=== PATIENT | male | born 1955 | race Two or more races ===

== ENCOUNTER → 2025-05-07 | Outpatient (CLI) | payer OTHER ==
[~2025-05-07] MED LIST: IOHEXOL-350 75 ML VIAL IV ONE
--- NOTE | 2025-05-07 22:11 | HMCIMG ---
STUDY CT Abdomen and Pelvis with IV contrast HISTORY Gastritis TECHNIQUE Axial contrast-enhanced CT images of the abdomen and pelvis were obtained. COMPARISON None provided. FINDINGS Lung bases Lung bases are clear without focal consolidation or pleural effusion. Liver and biliary system Liver is enlarged, measuring approximately 15.5 cm in craniocaudal dimension, with diffuse low attenuation in keeping with hepatic steatosis. No discrete focal hepatic mass is identified. No intrahepatic or extrahepatic biliary ductal dilatation. Gallbladder is unremarkable on this study without radiopaque gallstones. Pancreas and spleen Pancreas is normal in size and contour without focal mass or ductal dilatation. Spleen is normal in size and attenuation. Adrenal glands Adrenal glands are unremarkable. Kidneys, ureters, and bladder Both kidneys are normal in global size without hydronephrosis or hydroureter. A right lower pole cortical cyst measuring approximately 3 cm demonstrates simple fluid attenuation and no suspicious mural or septal features. No urinary calculi are seen. Urinary bladder is unremarkable. Stomach There is segmental, circumferential gastric wall thickening involving the cardia and proximal body over a craniocaudal length of approximately 12 cm, with maximal mural thickness of up to 1.6 cm. The thickening is relatively symmetric and associated with perigastric fat stranding, without focal mass-like nodularity, luminal shouldering, or obvious serosal breach. No gastric outlet obstruction, pneumatosis, or contained perforation is identified. Bowel The large bowel demonstrates diffuse wall thickening involving the ascending colon, hepatic flexure, transverse colon, splenic flexure, and descending colon, with maximal mural thickness measuring approximately 0.7 to 0.8 cm. The involved segments have a featureless or [id number] appearance, with associated pericolonic fat stranding and prominent mesenteric vasculature, in keeping with an active colitic process. No discrete focal ulcer crater, intramural gas, or yaz mass lesion is seen. Small bowel loops are unremarkable without obstruction. Appendix Appendix is visualized, normal in caliber, and without periappendiceal inflammatory change. Peritoneum and lymph nodes No free intraperitoneal air or fluid. No abdominopelvic lymphadenopathy. Reproductive organs Reproductive structures are unremarkable as visualized. Vasculature No abdominal aortic aneurysm. Major mesenteric and portal venous structures are patent on this contrast-enhanced study. Bones No aggressive osseous lesion or acute fracture. Mild degenerative changes are present in the visualized spine. IMPRESSION * Segmental circumferential thickening of the cardia and proximal gastric body with perigastric fat stranding, most compatible with active gastritis; the symmetric morphology and absence of a discrete mass or shouldering are not typical for overt gastric malignancy, but endoscopic correlation with mucosal evaluation and biopsy is recommended for definitive characterization. * Diffuse colonic wall thickening from the ascending through the descending colon with pericolonic fat stranding, a featureless large bowel contour, and prominent mesenteric vasculature, most in keeping with an active colitis (infectious, inflammatory, or ischemic etiology to be differentiated clinically and endoscopically); no CT evidence of perforation, abscess, or obstruction. * Hepatomegaly with diffuse hepatic steatosis, without focal hepatic lesion. * Simple right lower pole renal cortical cyst measuring approximately 3 cm, without hydronephrosis or urinary calculi. /Temitope
== END | disposition home or self-care (01) ==
LOC: EEVIPCON 09:30 → RAH 09:52
PROVIDERS: ATTEND Physical Medicine & Rehabilitation
DX: K29.70 Gastritis, unspecified, without bleeding (principal); K56.600 Partial intestinal obstruction, unspecified as to cause; K76.0 Fatty (change of) liver, not elsewhere classified; A09 Infectious gastroenteritis and colitis, unspecified; R16.0 Hepatomegaly, not elsewhere classified; N28.1 Cyst of kidney, acquired; M47.815 Spondylosis without myelopathy or radiculopathy, thoracolumbar region
CPT/HCPCS: 74160; Q9967